=== PATIENT | male | born 2000 | race Caucasian/White ===

== ENCOUNTER → 2021-06-30 | Day surgery (SDC) | payer BC ==
[2021-07-04 07:07] LABS: PROTEIN C FUNCTIONAL 145 % (73-180)
== END | disposition home or self-care (01) ==
LOC: CT 10:12
PROVIDERS: ATTEND Internal Medicine Critical Care Medicine
DX: R91.8 Other nonspecific abnormal finding of lung field (principal); D68.9 Coagulation defect, unspecified
CPT/HCPCS: 36415; 71250; 82728; 85303; 85306; 85379; 86140

== ENCOUNTER 2021-09-20 15:59 | Inpatient (IN) | payer BC ==
[~2021-09-20] VITALS: Ht 170.2 cm; Wt 63.0 kg
[2021-09-20] MEDS ORDERED: ONDANSETRON HCL 4MG/2ML INJ IV STA (16:58)
[2021-09-20] MEDS ORDERED: MORPHINE SULFATE 4 MG/ML CPJ (NOT FOR IM USE) IV STA (16:58)
[2021-09-20] MEDS ORDERED: FAMOTIDINE 20MG/2ML VIAL IV STA (16:58)
[2021-09-20] MEDS ORDERED: SODIUM CHLORIDE 0.9% 1,000 ML IV ONE ×3 (17:00→19:30)
[2021-09-20 17:17] LABS: HEMATOCRIT. 50.2 % (42.0-52.0); HEMOGLOBIN. 17.3 g/dL (14.0-18.0); MEAN CORPUSCULAR HEMOGLOBIN 27.9 pg (28.0-32.0); MEAN CORPUSCULAR VOLUME 80.9 fL (80.0-94.0); MEAN PLATELET VOLUME 7.7 fl (7.4-10.4); PLATELET 317 x1000/uL (130-400); RED CELL DISTRIBUTION WIDTH 13.3 % (11.6-14.6)
[2021-09-20 17:23] LABS: CHLORIDE 103 mEq/L (98-107)
[2021-09-20 17:47] LABS: PLATELET ESTIMATE NORMAL
[2021-09-20] MEDS ORDERED: MORPHINE SULFATE 4 MG/ML CPJ (NOT FOR IM USE) IV NR (19:15)
[2021-09-20] MEDS ORDERED: MAGNESIUM/ALUMINUM HYDROXIDE/SIMETHICONE 30ML UDC PO ONE (19:30)
[2021-09-20] MEDS ORDERED: FAMOTIDINE 20MG/2ML VIAL IV ONE (19:30)
[2021-09-20] MEDS ORDERED: VISCOUS LIDOCAINE 2% 15 ML UDC MM ONE (19:30)
[2021-09-20] MEDS ORDERED: METOCLOPRAMIDE HCL 10MG/2ML VIAL IV ONE (19:45)
[2021-09-20] MEDS ORDERED: DEXAMETHASONE 10 MG/ML VIAL IV ONE (19:45)
[2021-09-20] MEDS ORDERED: DEXT 5%/LACTATED RINGERS 1,000 ML IV ONE (19:45)
[2021-09-20 19:59] LABS: CLARITY URINE CLEAR (CLEAR); COLOR URINE YELLOW (YELLOW); KETONES URINE 1+ (NEGATIVE); LEUKOCYTE ESTERASE URINE NEGATIVE (NEGATIVE); NITRITE URINE NEGATIVE (NEGATIVE); OCCULT BLOOD URINE NEGATIVE (NEGATIVE); PROTEIN URINE TRACE (NEGATIVE); SPECIFIC GRAVITY URINE 1.013 (1.005-1.030); UROBILINOGEN URINE 0.2 E.U./dL (0.2-1.0)
[2021-09-20] MEDS ORDERED: MIDAZOLAM HCL 2 MG/2 ML VIAL IV ONE (20:45)
[2021-09-20 21:30] VITALS: BP 124/76
[2021-09-20] MEDS ORDERED: GUAIFENESIN 200MG/10ML SUGAR FREE UDC PO PRN (21:45)
[2021-09-20 22:00] VITALS: BP 128/66
[2021-09-20] MEDS ORDERED: LORAZEPAM 2MG/ML CPJ IV PRN (22:00)
[2021-09-20] MEDS: DEXT 5%/LACTATED RINGERS 1,000 ML IV SCH (22:11)
[2021-09-20] MEDS ORDERED: IPRATROPIUM/ALBUTEROL 0.5-3(2.5)MG/3ML NEB HHN SCH (23:00)
[2021-09-20] MEDS: PIPERACILLIN/TAZOBACTAM 3.375 G in DEXTROSE 5% WATER 50 ML IV SCH (23:06)
[2021-09-21] VITALS (23 sets, daily range): BP systolic 107–139; BP diastolic 49–94
[2021-09-21] MEDS: MORPHINE SULFATE 2 MG/ML CPJ (NOT FOR IM USE) IV PRN ×4 (00:30→18:42)
[2021-09-21] MEDS: DEXT 5%/LACTATED RINGERS 1,000 ML IV SCH ×3 (02:46→23:43)
[2021-09-21] MEDS ORDERED: NALOXONE HCL 0.4 MG/ML 1ML VIAL IV PRN (03:00)
[2021-09-21] MEDS: PIPERACILLIN/TAZOBACTAM 3.375 G in DEXTROSE 5% WATER 50 ML IV SCH ×3 (06:53→23:44)
[2021-09-21 07:02] LABS: HEMATOCRIT. 47.1 % (42.0-52.0); MEAN CORPUSCULAR HEMOGLOBIN 27.4 pg (28.0-32.0); MEAN CORPUSCULAR VOLUME 80.8 fL (80.0-94.0); PLATELET 340 x1000/uL (130-400); RED BLOOD CELL COUNT 5.83 mill/uL (4.7-6.1); RED CELL DISTRIBUTION WIDTH 13.5 % (11.6-14.6)
[2021-09-21] MEDS ORDERED: LIDOCAINE HCL 2% JELLY 5ML MM SCH (07:30)
[2021-09-21] MEDS ORDERED: LIDOCAINE HCL 2% JELLY 5ML ONE (07:30)
[2021-09-21 07:45] LABS: CHLORIDE 104 mEq/L (98-107)
[2021-09-21] MEDS ORDERED: IPRATROPIUM/ALBUTEROL 0.5-3(2.5)MG/3ML NEB HHN PRN (08:15)
[2021-09-21 10:07] LABS: PLATELET ESTIMATE NORMAL
[2021-09-21] MEDS: ONDANSETRON HCL 4MG/2ML INJ IV PRN (10:21)
[2021-09-21] MEDS ORDERED: BUPIVACAINE HCL 0.5% (5MG/ML) 50ML ONE (15:57)
[2021-09-21] MEDS ORDERED: ALBUMIN HUMAN 12.5GM/50ML (25%) IV ONE (16:52)
[2021-09-21] MEDS ORDERED: MORPHINE SULFATE/PF 1MG/ML 10ML AMP ONE (16:53)
[2021-09-21] MEDS ORDERED: GLYCOPYRROLATE 0.2 MG/ML 2ML VIAL ONE ×2 (17:35→18:20)
[2021-09-21] MEDS ORDERED: ROCURONIUM BROMIDE 10MG/ML VIAL 5ML IV ONE (17:35)
[2021-09-21] MEDS ORDERED: PROPOFOL 200MG/20ML VIAL IV ONE (17:35)
[2021-09-21] MEDS ORDERED: BUPIVACAINE HCL 0.5% 125 ML in ON-Q PM012 DRUG DELIV DEVICE 1 EA IR SCH (17:45)
[2021-09-21] MEDS ORDERED: KETOROLAC 30MG/ML VIAL ONE (17:47)
[2021-09-21] MEDS ORDERED: SKIN ADHESIVE 0.7 GM EA TOP ONE ×2 (17:51→18:22)
[2021-09-21] MEDS ORDERED: BUPIVACAINE HCL 0.5% 125 ML in ON-Q PUMP (PM012=P100X2) IR SCH (18:00)
[2021-09-21] MEDS ORDERED: NEOSTIGMINE METHYLSULFATE 1MG/ML 10 ML VIAL ONE (18:20)
[2021-09-21] MEDS ORDERED: KETOROLAC 30MG/ML VIAL IV PRN (22:30)
[2021-09-22] VITALS (43 sets, daily range): BP systolic 102–137; BP diastolic 45–77
[2021-09-22] MEDS: DEXT 5%/LACTATED RINGERS 1,000 ML IV SCH ×4 (00:58→20:26)
[2021-09-22] MEDS ORDERED: DIPHENHYDRAMINE 50MG/ML VIAL IV PRN (05:00)
[2021-09-22 06:04] LABS: BASOPHILS % 0.1 % (0.0-2.0); HEMATOCRIT. 38.3 % (42.0-52.0); HEMOGLOBIN. 12.8 g/dL (14.0-18.0); LYMPHOCYTES % 9.4 % (20.0-50.0); MEAN CORPUSCULAR HEMOGLOBIN 27.2 pg (28.0-32.0); MEAN CORPUSCULAR VOLUME 81.2 fL (80.0-94.0); MEAN PLATELET VOLUME 7.8 fl (7.4-10.4); MONOCYTES % 12.3 % (2.0-8.0); NEUTROPHILS % 78.2 % (40.0-76.0); PLATELET 291 x1000/uL (130-400); RED BLOOD CELL COUNT 4.72 mill/uL (4.7-6.1); RED CELL DISTRIBUTION WIDTH 13.5 % (11.6-14.6)
[2021-09-22 06:22] LABS: CHLORIDE 104 mEq/L (98-107)
[2021-09-22] MEDS: PIPERACILLIN/TAZOBACTAM 3.375 G in DEXTROSE 5% WATER 50 ML IV SCH ×3 (08:07→22:04)
[2021-09-22] MEDS ORDERED: MORPHINE SULFATE 4 MG/ML CPJ (NOT FOR IM USE) IV PRN ×2 (15:00→18:19)
[2021-09-22] MEDS ORDERED: MORPHINE SULFATE 2 MG/ML CPJ (NOT FOR IM USE) IV PRN (21:30)
[2021-09-23] VITALS (12 sets, daily range): BP systolic 116–138; BP diastolic 61–86
[2021-09-23] MEDS: MORPHINE SULFATE 2 MG/ML CPJ (NOT FOR IM USE) IV PRN ×4 (00:26→07:42)
[2021-09-23] MEDS: DEXT 5%/LACTATED RINGERS 1,000 ML IV SCH ×4 (03:00→22:47)
[2021-09-23] MEDS: PIPERACILLIN/TAZOBACTAM 3.375 G in DEXTROSE 5% WATER 50 ML IV SCH ×3 (06:06→22:31)
[2021-09-23 09:39] LABS: BASOPHILS % 0.1 % (0.0-2.0); EOSINOPHILS % 0.5 % (0.0-5.0); HEMATOCRIT. 42.6 % (42.0-52.0); HEMOGLOBIN. 14.5 g/dL (14.0-18.0); LYMPHOCYTES % 15.2 % (20.0-50.0); MEAN CORPUSCULAR HEMOGLOBIN 27.9 pg (28.0-32.0); MEAN PLATELET VOLUME 7.5 fl (7.4-10.4); MONOCYTES % 13.8 % (2.0-8.0); NEUTROPHILS % 70.4 % (40.0-76.0); PLATELET 297 x1000/uL (130-400); RED CELL DISTRIBUTION WIDTH 13.1 % (11.6-14.6)
[2021-09-23 09:47] LABS: CHLORIDE 102 mEq/L (98-107)
[2021-09-23] MEDS: KETOROLAC 30MG/ML VIAL IV PRN ×3 (11:00→22:50)
[2021-09-23] MEDS: POLYVINYL ALCOHOL OPHTH DROPS 15ML BOTHEYE PRN (22:42)
[2021-09-24] VITALS (13 sets, daily range): BP systolic 114–144; BP diastolic 61–88
[2021-09-24] MEDS: KETOROLAC 30MG/ML VIAL IV PRN ×3 (05:42→22:11)
[2021-09-24] MEDS: PIPERACILLIN/TAZOBACTAM 3.375 G in DEXTROSE 5% WATER 50 ML IV SCH ×3 (06:20→22:11)
[2021-09-24] MEDS: DEXT 5%/LACTATED RINGERS 1,000 ML IV SCH ×3 (06:27→20:06)
[2021-09-24 10:10] LABS: BASOPHILS % 0.3 % (0.0-2.0); EOSINOPHILS % 3.2 % (0.0-5.0); HEMATOCRIT. 42.1 % (42.0-52.0); HEMOGLOBIN. 14.2 g/dL (14.0-18.0); LYMPHOCYTES % 16.2 % (20.0-50.0); MEAN CORPUSCULAR HEMOGLOBIN 27.5 pg (28.0-32.0); MEAN CORPUSCULAR VOLUME 81.9 fL (80.0-94.0); MEAN PLATELET VOLUME 7.2 fl (7.4-10.4); NEUTROPHILS % 69.3 % (40.0-76.0); PLATELET 330 x1000/uL (130-400); RED BLOOD CELL COUNT 5.14 mill/uL (4.7-6.1); RED CELL DISTRIBUTION WIDTH 12.9 % (11.6-14.6)
[2021-09-24 10:20] LABS: CHLORIDE 104 mEq/L (98-107)
[2021-09-25] VITALS (12 sets, daily range): BP systolic 115–139; BP diastolic 61–89
[2021-09-25] MEDS: POLYVINYL ALCOHOL OPHTH DROPS 15ML BOTHEYE PRN ×2 (00:05→12:39)
[2021-09-25] MEDS: DEXT 5%/LACTATED RINGERS 1,000 ML IV SCH (02:22)
[2021-09-25] MEDS: ONDANSETRON HCL 4MG/2ML INJ IV PRN (03:21)
[2021-09-25] MEDS: PIPERACILLIN/TAZOBACTAM 3.375 G in DEXTROSE 5% WATER 50 ML IV SCH (06:07)
[2021-09-25] MEDS: KETOROLAC 30MG/ML VIAL IV PRN ×2 (06:52→18:24)
[2021-09-25 08:26] LABS: CHLORIDE 107 mEq/L (98-107)
[2021-09-25 08:30] LABS: BASOPHILS % 0.4 % (0.0-2.0); EOSINOPHILS % 5.9 % (0.0-5.0); HEMATOCRIT. 40.2 % (42.0-52.0); HEMOGLOBIN. 13.6 g/dL (14.0-18.0); LYMPHOCYTES % 17.5 % (20.0-50.0); MEAN CORPUSCULAR HEMOGLOBIN 27.5 pg (28.0-32.0); MEAN CORPUSCULAR VOLUME 81.3 fL (80.0-94.0); MEAN PLATELET VOLUME 7.3 fl (7.4-10.4); NEUTROPHILS % 66.2 % (40.0-76.0); PLATELET 344 x1000/uL (130-400); RED BLOOD CELL COUNT 4.94 mill/uL (4.7-6.1)
[2021-09-25] MEDS: DEXT 5%/0.9% NACL 1,000 ML IV SCH ×3 (10:06→23:14)
[2021-09-26] VITALS (8 sets, daily range): BP systolic 113–130; BP diastolic 58–77
[2021-09-26] MEDS: KETOROLAC 30MG/ML VIAL IV PRN ×2 (00:42→09:25)
[2021-09-26] MEDS: DEXT 5%/0.9% NACL 1,000 ML IV SCH ×3 (05:37→20:40)
[2021-09-26] MEDS ORDERED: NALOXONE HCL 0.4MG/ML VIAL IV PRN (16:45)
[2021-09-27] MEDS: DEXT 5%/0.9% NACL 1,000 ML IV SCH ×3 (01:54→15:14)
[2021-09-27 08:00] VITALS: BP 114/63
[2021-09-27 16:00] VITALS: BP 127/67
== END 2021-09-27 19:27 | disposition left against medical advice (07) | DRG 330 ==
LOC: ER 15:59 → 3WST 19:51 → EEVIPCON 19:51 → ENRESERV 20:24 → CVICU 09-21 18:32 → 3WST 09-22 12:42
PROVIDERS: ADMIT Internal Medicine Critical Care Medicine; ATTEND Internal Medicine Critical Care Medicine
PROC: 0DN80ZZ Release Small Intestine, Open Approach (ICD-10-PCS; principal; 2021-09-21)
PROC: 0DB80ZZ Excision of Small Intestine, Open Approach (ICD-10-PCS; 2021-09-21)
PROC: 0W9G0ZZ Drainage of Peritoneal Cavity, Open Approach (ICD-10-PCS; 2021-09-21)
PROC: 0JH80WZ Insertion of Totally Implantable Vascular Access Device into Abdomen Subcutaneous Tissue and Fascia, Open Approach (ICD-10-PCS; 2021-09-21)
DX: Q43.0 Meckel's diverticulum (displaced) (hypertrophic) (principal); K56.699 Other intestinal obstruction unspecified as to partial versus complete obstruction; R18.8 Other ascites; J98.11 Atelectasis; E86.0 Dehydration; D72.829 Elevated white blood cell count, unspecified; Z20.822 Contact with and (suspected) exposure to COVID-19; K66.0 Peritoneal adhesions (postprocedural) (postinfection); Z86.16 Personal history of COVID-19; Z86.19 Personal history of other infectious and parasitic diseases
CPT/HCPCS: 36415; 71045; 74018; 74176; 74177; 80048; 80053; 81003; 84145; 85025; 86140; 87070; 87426; 87430; 87804; 88304; 94640; 97162; 99285; J1100; J1200; J1885; J2060; J2270; J2274; J2405; J2543; J2704; J2710; J2765; J3490; J7030; J7042; J7060; J7121; P9047